=== PATIENT | female | born 1930 | race Caucasian/White ===

== ENCOUNTER 2018-10-09 09:12 | Day surgery (SDC) | payer MEDICARE, BC ==
[2018-09-30 11:10] LABS: BASOPHILS % (AUTO) 0.9 % (0.0-2.0); EOSINOPHILS % (AUTO) 1.1 % (0.0-3.0); HEMATOCRIT 42.8 % (37.0-47.0); HEMOGLOBIN 14.1 G/DL (12.0-16.0); LYMPHOCYTES % (AUTO) 17.2 % (20.0-45.0); MEAN CORPUSCULAR VOLUME 94 FL (80-99); MONOCYTES % (AUTO) 8.3 % (1.0-10.0); NEUTROPHILS % (AUTO) 72.6 % (45.0-75.0); PLATELET COUNT 265 K/UL (150-450); RED BLOOD COUNT 4.56 M/UL (4.20-5.40); WHITE BLOOD COUNT 7.2 K/UL (4.8-10.8)
[2018-09-30 11:23] LABS: ALANINE AMINOTRANSFERASE 26 U/L (12-78); ALBUMIN 3.1 G/DL (3.4-5.0); ALBUMIN/GLOBULIN RATIO 0.8 (1.0-2.7); ALKALINE PHOSPHATASE 59 U/L (46-116); ANION GAP 6 mmol/L (5-15); ASPARTATE AMINO TRANSFERASE 20 U/L (15-37); BILIRUBIN,TOTAL 0.6 MG/DL (0.2-1.0); BLOOD UREA NITROGEN 18 mg/dL (7-18); CARBON DIOXIDE 28 MMOL/L (21-32); CHLORIDE 109 MMOL/L (98-107); CREATININE 0.7 MG/DL (0.55-1.30); POTASSIUM 3.7 MMOL/L (3.5-5.1); SODIUM 143 MMOL/L (136-145)
--- NOTE | 2018-09-30 15:23 | Diagnostic Imaging Report ---
Indication: Cough Comparison: 11/05/2013 2 views of the chest obtained. Findings: Bronchial wall thickening demonstrated diffusely with some prominence of the interstitium. The lungs are hyperexpanded. Heart size is within normal limits. Bones are osteopenic. IMPRESSION: COPD/chronic bronchitis
--- NOTE | 2018-10-03 16:08 | Cardiology Report ---
APPROVED REPORT EKG Measurement Heart [id number] Normal sinus rhythm Normal ECG
[~2018-10-09] VITALS: Ht 157.5 cm; Wt 47.6 kg
[~2018-10-09 09:12] MED LIST: ceFAZolin sod 2 GM in NS 55 ML IVPB ONE
[2018-10-09] MEDS ORDERED: RALOXIFENE HCL60 MG PO (10:00)
[2018-10-09] MEDS ORDERED: LOSARTAN POTASS50 MG ORAL (10:00)
[2018-10-09] MEDS ORDERED: PRAVASTATIN SOD40 M1 ORAL (10:00)
[2018-10-09] MEDS ORDERED: AMLODIPINE BESYL5 MG ORAL (10:00)
[2018-10-09] MEDS ORDERED: EVISTA PO (10:00)
--- NOTE | 2018-10-09 10:04 | Pre-Procedure Note/Attestation ---
Pre-Procedure Note/Attestation Complete Prior to Procedure Planned Procedure: right Procedure Narrative: excision of right neck mass Indications for Procedure Pre-Operative Diagnosis: right neck mass Attestation I attest that I discussed the nature of the procedure; its benefits; risks and complications; and alternatives (and the risks and benefits of such alternatives ), prior to the procedure, with the patient (or the patient's legal pest control service representative). I attest that, if there was a reasonable possibility of needing a blood transfusion, the patient (or the patient's legal pest control service representative) was given the [facility] standardized written summary, pursuant to the Musa Fitzpatrick Blood Safety Act ([place] Health and Safety Code # 1645, as amended). I attest that I re-evaluated the patient just prior to the surgery and that there has been no change in the patient's H&P, except as documented below: Luis Fernando Sandhu Oct 09, 2018 10:04
[2018-10-09] MEDS ORDERED: Bupivacaine w/Epi 0.25% 30ml Vial INJ ONE (10:06)
[2018-10-09 10:07] VITALS: BP 184/75
[2018-10-09 11:10] VITALS: BP 141/85
--- NOTE | 2018-10-09 11:27 | Brief Operative Note ---
Immediate Post Operative Note Operative Note Pre-op Diagnosis: right neck mass Procedure: excision of right neck mass Post-op Diagnosis: same as pre-op Surgeon: danilo Anesthesia: local Specimen: yes Complications: none Condition: stable Fluids: n/a Estimated Blood Loss: minimal Drains: none Implant(s) used?: No Luis Fernando Sandhu Oct 09, 2018 11:27
[2018-10-09 11:30] VITALS: BP 144/79
[2018-10-09] MEDS ORDERED: D5 1/2NS 1,000 ML IV SCH (11:30)
[2018-10-09] MEDS ORDERED: HYDROmorphone 1mg/ml Carpuject SUBQ PRN (11:30)
[2018-10-09] MEDS ORDERED: Norco 5mg/325mg tab ORAL PRN (11:30)
[2018-10-09] MEDS ORDERED: Tylenol #3 tab (300mg/30mg) ORAL PRN (11:30)
--- NOTE | 2018-10-09 18:30 | Operative Note - Dictated ---
DATE OF OPERATION: 10/09/2018 PREOPERATIVE DIAGNOSIS: Right neck mass. POSTOPERATIVE DIAGNOSIS: Right neck mass. OPERATION PERFORMED: Excision of right neck mass deep to the platysma. ATTENDING SURGEON: Luis Fernando Sandhu M.D. ENERGY SYSTEMS ENGINEER: None. ANESTHESIOLOGIST: Not applicable. ANESTHESIA: Local. ESTIMATED BLOOD LOSS: Minimal. IV FLUIDS: None. SPECIMENS: Right neck mass sent to pathology for review. DRAINS: None. IMPLANTS: None WOUND CONSULTATION: Class 1. ANTIBIOTICS: None. INDICATIONS FOR PROCEDURE: This is an 88-year-old female who was recently in the past few weeks noted a mass in her right neck as she was applying makeup. She states there was a visible mass that was palpated and during evaluation by primary care physician, she was referred to Dr. Sandhu for further evaluation. A 1 to 2 cm mobile right neck mass was identified deep to the subcutaneous tissue. Excision was recommended and indicated. Risks, benefits, alternatives discussed with the patient in detail, who expressed understanding and consented for surgery. OPERATIVE NOTE: The patient taken to the operating room and placed on the operating room table in supine position with bilateral arms tucked. All bony prominences well padded. The right neck was prepped and draped in standard surgical fashion. Preoperative time-out was taken identifying the patient, procedure, operative staff, and surgical staff. The case was performed under local anesthetic with just monitoring. The patient was placed on monitors and a nursing staff was available for monitoring the patient. The mass was identified and marked preoperatively. After appropriate time-out, local anesthetic was infiltrated into the skin incision. A 1 cm transverse incision was made overlying the mass. Incision was carried down through the dermis, subcutaneous tissue to the just deep to the platysma where a 1 cm purple colored soften mass was identified. It was abutting a small on a vein and but did not seem of a significant lymph node. At this time, the mass was circumferentially dissected out and divided at its base using medium surgical clips. The mass was then divided and ligated and sent to pathology for review. At this time, the wound was irrigated. Local anesthetic was infiltrated deeper and cleaned. At this time, the wound was then closed by reapproximating the skin edges using 4-0 Monocryl subcuticular interrupted suture. Skin glue was applied. The patient tolerated the procedure well without any immediate postoperative complications. Luis Fernando Sandhu M.D. DR: Javier JOB#: [id number] CC: [email or web address]
== END 2018-10-09 11:30 | disposition home or self-care (01) ==
LOC: SUR 09:12
DX: I82.90 Acute embolism and thrombosis of unspecified vein (principal)
CPT/HCPCS: 36415; 71046; 80053; 85025; 85610; 85730; 93005